=== PATIENT | male | born 1985 | race Two or more races ===

== ENCOUNTER 2016-08-18 04:08 | Emergency (ER) | payer SELFPAY ==
[~2016-08-18] VITALS: Ht 177.8 cm; Wt 193.5 kg
[2016-08-18 04:11] VITALS: Ht 177.8 cm; Wt 193.5 kg
--- NOTE | 2016-08-18 07:07 | ERD ---
ER Documentation Chief Complaint Date/Time DATE: 08/18/16 TIME: 07:03 Chief Complaint testicular swelling since 6 weeks ago HPI 31-year-old male no significant past medical history who presents the emergency room with peripheral edema and scrotal swelling. He describes the symptoms for at least 3-4 months. He states that he is followed up with a primary care physician with laboratory testing approximately 2-3 weeks ago. The patient has been started on Lasix. He is also been dieting and changing his salt intake. He has noted to dramatic improvement in his lower extremity swelling but still has scrotal swelling. The patient denies any pain no fevers no wound. He is concerned because of the persistence of symptoms. He states that his primary care physician requested a scrotal ultrasound. ROS All systems reviewed and are negative except as per history of present illness. Allergies Allergies: Coded Allergies: No Known Allergy (Unverified , 08/18/16) FmHx Family History: No diabetes Physical Exam Vitals Vital Signs Date Time Temp Pulse Resp B/P Pulse Ox O2 Delivery O2 Flow Rate FiO2 08/18/16 04:11 98.7 107 20 210/116 97 Physical Exam General: Morbidly obese male, no significant distress Head: Normocephalic, atraumatic. Eyes: Pupils equally reactive, EOM intact ENT: Moist mucous membranes Neck: Supple, no lymphadenopathy Respiratory: Lungs clear bilaterally, no distress Cardiovascular: RRR, no murmurs, rubs, or gallops Abdominal: Soft, abdominal wall edema : Significant scrotal edema, no tenderness, no crepitus, no erythema or warmth MSK: Mild bilateral lower extremity pitting edema, no unilateral swelling, 5/5 strength Neurologic: Alert and oriented, moving all extremities, normal speech, no focal weakness, no cerebellar signs Skin: No rash Psych: Normal mood Result Diagram: 08/18/1672408/18/16724 Results 24 hrs Laboratory Tests Test 08/18/16 07:25 Alanine Aminotransferase (ALT/SGPT) 23IU/L Albumin 3.7g/dl Albumin/Globulin Ratio 1.00 Alkaline Phosphatase 135IU/L Anion Gap 15 Aspartate Amino Transf (AST/SGOT) 27IU/L Basophils # 0.110^3/ul Basophils % 0.5% Blood Urea Nitrogen 5mg/dl Calcium Level 9.0mg/dl Carbon Dioxide Level 37mmol/L Chloride Level 97mmol/L Creatinine 0.75mg/dl Direct Bilirubin 0.00mg/dl Eosinophils # 0.110^3/ul Eosinophils % 1.0% Globulin 3.70g/dl Glucose Level 115mg/dl Hematocrit 47.0% Hemoglobin 14.1g/dl Indirect Bilirubin 0.6mg/dl Lymphocytes # 2.210^3/ul Lymphocytes % 21.9% Mean Corpuscular Hemoglobin 27.3pg Mean Corpuscular Hemoglobin Concent 30.0g/dl Mean Corpuscular Volume 90.9fl Mean Platelet Volume 9.9fl Monocytes # 1.210^3/ul Monocytes % 12.1% Neutrophils # 6.310^3/ul Neutrophils % 64.1% Nucleated Red Blood Cells # 0.010^3/ul Nucleated Red Blood Cells % 0.0/100WBC Platelet Count 14736^3/UL Potassium Level 4.1mmol/L Red Blood Count 5.1710^6/ul Red Cell Distribution Width 15.8% Sodium Level 145mmol/L Total Bilirubin 0.6mg/dl Total Protein 7.4g/dl White Blood Count 9.810^3/ul Procedures/MDM EKG, MONITORS, & DIAGNOSTIC IMAGING: Scrotal ultrasound: IMPRESSION: 1. No sonographic evidence for testicular torsion. 2. Diffuse extensive bilateral scrotal wall edema. 3. The epididymis was not able to be visualized bilaterally. LAB INTERPRETATION: No renal failure hepatic failure MEDICAL DECISION MAKING: The patient has signs and symptoms consistent with anasarca of unclear etiology. It appears the patient has had preliminary testing including laboratory testing. He exhibits no signs or symptoms concerning for cardiogenic shock. No rales, no shortness of breath. Symptoms have been subacute in persistent over the past several months. Patient has seen improvement with diet and Lasix. His scrotal exam is very consistent with scrotal edema. I do not believe this is consistent with torsion, cellulitis. The patient has no evidence of infectious process such as necrotizing fasciitis or Paulette's gangrene. The patient is requesting a scrotal ultrasound. He is also requesting repeat blood test. I advised that blood testing may not show new findings. The patient has no evidence of cardiogenic etiology. I will screen the patient for hepatic and renal etiology. The patient was advised to follow-up with primary care physician and consideration for outpatient urology follow-up. Outpatient echocardiogram may be reasonable as well. ER COURSE: The patient continues to be well-appearing, laboratories testing is reassuring. Ultrasound confirms wall edema, no evidence of acute testicular process. I kept the patient and/or family informed of laboratory and diagnostic imaging results throughout the emergency room course. DISPOSITION PLAN: We discussed follow up with the patient's primary care doctor within 24 to 48 hours as needed. We also discussed return to the emergency room for worsening symptoms or worsening condition. Patient to follow-up with primary care physician. Departure Diagnosis: Primary Impression: Scrotal edema Additional Impression: Peripheral edema Condition: Good FRANCE DEUTSCH MD Aug 18, 2016 07:07
[2016-08-18 07:38] LABS: ADD SCAN DIFF NO
[2016-08-18 07:43] LABS: BASOPHIL # 0.1 10^3/ul (0.0-0.1); BASOPHILS % 0.5 % (0.0-2.0); EOSINOPHILS # 0.1 10^3/ul (0.0-0.5); HEMOGLOBIN 14.1 g/dl (14.0-18.0); LYMPHOCYTES # 2.2 10^3/ul (0.8-2.9); LYMPHOCYTES % 21.9 % (15.0-51.0); MEAN CORPUSCULAR HEMOGLOBIN 27.3 pg (29.0-33.0); MEAN CORPUSCULAR VOLUME 90.9 fl (82.0-101.0); MEAN PLATELET VOLUME 9.9 fl (7.4-10.4); MONOCYTE # 1.2 10^3/ul (0.3-0.9); MONOCYTES % 12.1 % (0.0-11.0); NEUTROPHIL # 6.3 10^3/ul (1.6-7.5); NEUTROPHILS % 64.1 % (39.0-77.0); PLATELET COUNT 246 10^3/UL (140-415); RED BLOOD COUNT 5.17 10^6/ul (4.70-6.10); RED CELL DISTRIBUTION WIDTH 15.8 % (11.5-14.5); WHITE BLOOD COUNT 9.8 10^3/ul (4.8-10.8)
--- NOTE | 2016-08-18 07:46 | RADRPT ---
PROCEDURE: ULTRASOUND TESTICULAR CLINICAL INDICATION: 31-year-old male with scrotal edema. TECHNIQUE: Multiple sonographic images of the scrotal region were obtained utilizing a linear arra y transducer with grayscale and color-flow and a Doppler imaging. The images were reviewed on a high -resolution PACS workstation. COMPARISON: None. FINDINGS: The right testicle is well visualized and has a normal echotexture. No focal areas of abnormal echog enicity are visualized. The right testicle measures 4.0 x 2.4 x 3.0 cm. There is normal color-flow. The right epididymis is not well visualized. The left testicle is well visualized and has a normal echotexture. No focal areas abnormal echogenic ity are visualized. The left testicle measures 3.7 x 2.7 x 3.1 cm. There is normal color-flow. The l eft epididymis is not well visualized. There is diffuse scrotal wall thickening and heterogeneous appearance consistent with edema. No def inite focal fluid collection is seen. IMPRESSION: 1. No sonographic evidence for testicular torsion. 2. Diffuse extensive bilateral scrotal wall edema. 3. The epididymis was not able to be visualized bilaterally. .Maxim Nowak MD, MD Date Time Electronically viewed and signed by .Maxim Nowka MD, on 08/18/2016 07:46 .M/
[2016-08-18 07:54] LABS: ALBUMIN 3.7 g/dl (3.3-4.9)
[2016-08-18 07:55] LABS: POTASSIUM 4.1 mmol/L (3.5-5.1)
[2016-08-18 07:57] LABS: BILIRUBIN,INDIRECT 0.6 mg/dl (0-1.1); BILIRUBIN,TOTAL 0.6 mg/dl (0.2-1.3); CREATININE 0.75 mg/dl (0.61-1.24); TOTAL PROTEIN 7.4 g/dl (6.1-8.1)
== END 2016-08-18 09:00 | disposition home or self-care (01) ==
LOC: FTE 04:08
DX: N50.89 Other specified disorders of the male genital organs (principal); R60.0 Localized edema
CPT/HCPCS: 36415; 76870; 80053; 85025

== ENCOUNTER → 2017-08-09 | Emergency (ER) | END | disposition left against medical advice (07) ==